=== PATIENT | female | born 1985 | race Caucasian/White ===

== ENCOUNTER → 2017-04-10 | Outpatient (CLI) | payer OTHER, BC ==
[~2017-04-10] MED LIST: COLACE100 MG PO; MOTRIN800 MG PO
== END | disposition short-term general hospital (02) ==
LOC: CLORTH 07:35
DX: G56.21 Lesion of ulnar nerve, right upper limb (principal)

== ENCOUNTER → 2017-05-22 | Outpatient (CLI) | payer OTHER, BC | END | disposition short-term general hospital (02) | LOC: CLORTH 09:23 | DX: Z48.811 Encounter for surgical aftercare following surgery on the nervous system (principal); Z98.890 Other specified postprocedural states ==